=== PATIENT | female | born 1950 | race Caucasian/White ===

== ENCOUNTER 2020-03-25 16:59 | Inpatient (IN) | payer MEDICARE, OTHER ==
[~2020-03-25] VITALS: Ht 157.5 cm; Wt 94.0 kg
[2020-03-25 17:37] LABS: HEMOGLOBIN 15.4 gm/dl (12.3-15.3); RED BLOOD COUNT 5.2 M/UL (4.00-5.10); WHITE BLOOD COUNT 23.2 K/UL (4.5-11.0)
[2020-03-25 19:01] LABS: BUN/CREATININE RATIO 31 (0-10)
[2020-03-25] MEDS ORDERED: ASPIRIN EC81 MG PO (19:09)
[2020-03-25] MEDS ORDERED: PRAVACHOL40 MG PO (19:10)
[2020-03-25] MEDS ORDERED: METOPROLOL SUC100 MG PO (19:10)
[2020-03-25] MEDS ORDERED: NORVASC5 MG PO (19:10)
[2020-03-25] MEDS ORDERED: MONTELUKAST SOD10 MG PO (19:10)
[2020-03-25] MEDS ORDERED: XANAX1 MG PO (19:11)
[2020-03-25] MEDS ORDERED: MORPHINE SULFAT60 M1 PO (19:11)
[2020-03-25] MEDS ORDERED: OXYCODON-ACETA1 EAC1 PO (19:12)
[2020-03-25] MEDS ORDERED: NITROSTAT 0.40.4 MG SL (19:12)
[2020-03-25] MEDS ORDERED: ALL DAY ALLERGY10 MG PO (19:13)
[2020-03-26 09:37] LABS: HEMOGLOBIN 12.3 gm/dl (12.3-15.3); RED BLOOD COUNT 4.25 M/UL (4.00-5.10); WHITE BLOOD COUNT 14.2 K/UL (4.5-11.0)
[2020-03-26 10:10] LABS: BUN/CREATININE RATIO 29 (0-10)
[2020-03-26 19:33] LABS: ENTEROCOCCUS Not Detected (Negative); KPC-CARBAPENEM-RESISTANCE GENE Not Detected (Negative); vanA/B (VANCOMYCIN RESIST GENE Not Detected (Negative)
[2020-03-26 19:34] LABS: ACINETOBACTER BAUMANNII Not Detected (Negative); CANDIDA ALBICANS Not Detected (Negative); CANDIDA KRUSEI Not Detected (Negative); CANDIDA TROPICALIS Not Detected (Negative); ESCHERICHIA COLI Not Detected (Negative); HAEMOPHILUS INFLUENZAE Not Detected (Negative); KLEBSIELLA OXYTOCA Not Detected (Negative); KLEBSIELLA PNEUMONIAE Not Detected (Negative); PROTEUS Not Detected (Negative); PSEUDOMONAS AERUGINOSA Not Detected (Negative); SERRATIA MARCESANS Not Detected (Negative); STAPHYLOCOCCUS AUREUS Not Detected (Negative); STREP AGALACTIAE (GROUP B) Not Detected (Negative); STREP PYOGENES (GROUP A) Not Detected (Negative); STREPTOCOCCUS Not Detected (Negative)
[2020-03-26 21:25] LABS: STAPHYLOCOCCUS DETECTED (Negative); mecA (METHICILLIN RESIST GENE DETECTED (Negative)
[2020-03-27 03:57] LABS: HEMOGLOBIN 12.9 gm/dl (12.3-15.3); RED BLOOD COUNT 4.48 M/UL (4.00-5.10); WHITE BLOOD COUNT 16.3 K/UL (4.5-11.0)
[2020-03-27 04:21] LABS: BUN/CREATININE RATIO 30 (0-10)
[2020-03-28 04:55] LABS: HEMOGLOBIN 12.1 gm/dl (12.3-15.3); RED BLOOD COUNT 4.3 M/UL (4.00-5.10)
[2020-03-28 06:24] LABS: BUN/CREATININE RATIO 30 (0-10)
[2020-03-29 07:22] LABS: HEMOGLOBIN 14.2 gm/dl (12.3-15.3); RED BLOOD COUNT 4.87 M/UL (4.00-5.10); WHITE BLOOD COUNT 15.9 K/UL (4.5-11.0)
[2020-03-29 07:37] LABS: BUN/CREATININE RATIO 35 (0-10)
[2020-03-30 06:26] LABS: HEMOGLOBIN 13.9 gm/dl (12.3-15.3); RED BLOOD COUNT 4.79 M/UL (4.00-5.10); WHITE BLOOD COUNT 14.9 K/UL (4.5-11.0)
[2020-03-31 05:24] LABS: HEMOGLOBIN 13.3 gm/dl (12.3-15.3); RED BLOOD COUNT 4.58 M/UL (4.00-5.10); WHITE BLOOD COUNT 18.6 K/UL (4.5-11.0)
[2020-04-01 07:59] LABS: HEMOGLOBIN 11.7 gm/dl (12.3-15.3); WHITE BLOOD COUNT 18.1 K/UL (4.5-11.0)
[2020-04-01 08:21] LABS: RED BLOOD COUNT 4.11 M/UL (4.00-5.10)
[2020-04-02 10:31] LABS: HEMOGLOBIN 11.1 gm/dl (12.3-15.3); RED BLOOD COUNT 3.8 M/UL (4.00-5.10)
[2020-04-02 10:32] LABS: WHITE BLOOD COUNT 13.5 K/UL (4.5-11.0)
[2020-04-02] MEDS ORDERED: AUGMENTIN 875-1 EACH PO (12:16)
[2020-04-02] MEDS ORDERED: LEVOFLOXACIN500 MG PO (12:16)
[2020-04-02] MEDS ORDERED: IPRAT-ALBUT 0.5-3 ML NEB (12:16)
[2020-04-02] MEDS ORDERED: LISINOPRIL5 MG PO (12:16)
[2020-04-02] MEDS ORDERED: LASIX40 MG PO (12:23)
== END 2020-04-02 16:48 | disposition home health service (06) | DRG 871 ==
LOC: EDBD 16:59 → ER1 16:59 → PROG CARE 18:50 → CDU 18:50 → PROG CARE 03-26 20:13 → MED SURG 4 03-29 14:39
PROVIDERS: Emergency Medicine; Internal Medicine; ADMIT Internal Medicine
PROC: 5A09457 Assistance with Respiratory Ventilation, 24-96 Consecutive Hours, Continuous Positive Airway Pressure (ICD-10-PCS; principal; 2020-03-25)
DX: A41.9 Sepsis, unspecified organism (principal); J18.9 Pneumonia, unspecified organism; J96.22 Acute and chronic respiratory failure with hypercapnia; J96.21 Acute and chronic respiratory failure with hypoxia; R65.21 Severe sepsis with septic shock; I50.33 Acute on chronic diastolic (congestive) heart failure; I21.A1 Myocardial infarction type 2; Z20.828 Contact with and (suspected) exposure to other viral communicable diseases; J44.0 Chronic obstructive pulmonary disease with (acute) lower respiratory infection; J44.1 Chronic obstructive pulmonary disease with (acute) exacerbation; E87.1 Hypo-osmolality and hyponatremia; N17.9 Acute kidney failure, unspecified; I11.0 Hypertensive heart disease with heart failure; I95.9 Hypotension, unspecified; I73.9 Peripheral vascular disease, unspecified; R77.8 Other specified abnormalities of plasma proteins; I25.10 Atherosclerotic heart disease of native coronary artery without angina pectoris; F41.1 Generalized anxiety disorder; E78.5 Hyperlipidemia, unspecified; G89.4 Chronic pain syndrome; Z99.81 Dependence on supplemental oxygen; Z87.891 Personal history of nicotine dependence; Z95.820 Peripheral vascular angioplasty status with implants and grafts; Z79.82 Long term (current) use of aspirin; Z79.891 Long term (current) use of opiate analgesic; Z95.1 Presence of aortocoronary bypass graft; Z79.899 Other long term (current) drug therapy; Z82.49 Family history of ischemic heart disease and other diseases of the circulatory system
CPT/HCPCS: ECHO; 36415; 36600; 51702; 71045; 80048; 80053; 80202; 82436; 82550; 82553; 82570; 82803; 83605; 83735; 83874; 83880; 84133; 84300; 84484; 85025; 85610; 85730; 86140; 87040; 87077; 87150; 87186; 89050; 90471; 93005; 93306; 94640; 94660; 94664; 94760; 96365; 96366; 96367; 96368; 96372; 96375; 96376; 97110-GP-CQ; 97116-GP-CQ; 97162; 97530; 97530-GP-CQ; 99285; J0696; J1100; J1650; J1885; J1940; J2185; J2543; J3370; J7070; U0002